=== PATIENT | female | born 1975 | race Hispanic/Latino ===

== ENCOUNTER → 2024-09-15 | Outpatient (REF) | payer OTHER ==
[~2024-09-15] MED LIST: ADDERALL 10 MG10 MG PO; ADDERALL XR 3030 MG PO; ATENOLOL50 MG PO; BUPROPION XL150 MG PO; KLONOPIN0.5 MG PO; MOUNJARO5 MG/0.5 M INJ; PANTOPRAZOLE SO40 MG PO; PAROXETINE HCL20 MG PO; SELENIUM200 MC2 PO; VITAMIN B121000 MCG PO; VITAMIN D3 PO; ZYRTEC10 M3 PO
== END ==
LOC: RAD 08:00 → EDSTATUS 09-20 11:00
PROVIDERS: ATTEND Specialist
DX: Z01.818 Encounter for other preprocedural examination (principal); G56.03 Carpal tunnel syndrome, bilateral upper limbs; I10 Essential (primary) hypertension; F41.8 Other specified anxiety disorders
CPT/HCPCS: 71046